=== PATIENT | male | born 1940 | race Caucasian/White ===

== ENCOUNTER 2019-05-05 08:20 | Outpatient (CLI) | payer MEDICARE, OTHER, SELFPAY ==
--- NOTE | 2019-05-05 08:34 | XRR_ITS ---
PROCEDURE INFORMATION: Exam: XR Abdomen, 1 View Exam date and time: 05/05/2019 8:51 AM Age: 78 years old Clinical indication: Other: Urinary retention; Prior surgery; Surgery date: 6+ months; Surgery type: Hernia repair TECHNIQUE: Imaging protocol: XR of the abdomen. Views: Frontal supine view of the abdomen. 1 View. COMPARISON: No relevant prior studies available. FINDINGS: Gastrointestinal tract: Bowel gas pattern is nonspecific. No mass effect upon the bowel loops. Distal rectal gas. Scattered loops of air filled small bowel none of which are dilated. Intraperitoneal space: Large number of surgical clips in the pelvis Bones/joints: No acute process within the osseous structures of the spine or pelvis. Soft tissues: No appreciable calcifications Other findings: Prostatic implants XR/XR KUB [id number] IMPRESSION: Bowel gas pattern is nonspecific.
== END 2019-05-05 08:21 | disposition home or self-care (01) ==
PROVIDERS: Family Provider Family Medicine; PCP Family Medicine; Visit Provider Urology
DX: R33.9 Retention of urine, unspecified (principal)
CPT/HCPCS: 74018

== ENCOUNTER 2020-03-23 09:14 | Outpatient (CLI) | payer MEDICARE, OTHER, SELFPAY ==
--- NOTE | 2020-03-23 10:00 | XR_ITS ---
WS: [id number] ABDOMEN: SUPINE FILM HISTORY: URETHRAL STRICTURE COMPARISON: 05/05/2019 Normal bowel gas pattern. LEFT convex curvature lumbar spine. Numerous surgical clips in the pelvis b ilaterally. Prostate gland seed implants. Right kidney: No renal or ureteral stone identified. Left kidney: No renal or ureteral stone identified. XR/XR KUB [id number] IMPRESSION: No renal or ureteral calcifications.
== END 2020-03-23 09:15 | disposition home or self-care (01) ==
PROVIDERS: PCP Family Medicine; Visit Provider Urology
DX: N35.919 Unspecified urethral stricture, male, unspecified site (principal)
CPT/HCPCS: 74018